=== PATIENT | female | born 1975 | race Caucasian/White ===

== ENCOUNTER 2017-05-31 08:58 | Day surgery (SDC) | payer BC ==
[~2017-05-31] VITALS: Ht 165.1 cm; Wt 52.1 kg
[~2017-05-31 08:58] MED LIST: ATIVAN0.5 MG PO; BCP TD; CLARINEX-D 24 H1 T24 PO; EXCEDRIN TENSION PO; LOVENOX 3030 MG/0.3 SQ; LOVENOX 4040 MG/0.4 SQ; MULTIPLE VITAMI1 CAP PO; PERCOCET 325 MG1 TA2 PO; PRENATAL VITAMI1 TA5 PO; PRENATAL1 TA2 PO; TYLENOL 325MG325 MG PO; VIIBRYD10 MG PO; XANAX 0.5MG0.5 MG PO
[2017-05-31] MEDS ORDERED: LOPRESSOR 225 MG/TAB PO (10:05)
[2017-05-31 10:16] VITALS: BP 123/77; PULSE 81; TEMP 98.7
[2017-05-31 11:37] VITALS: BP 128/78; PULSE 87
[2017-05-31 11:52] VITALS: BP 141/91; PULSE 73
[2017-05-31 12:07] VITALS: BP 141/84; PULSE 78
[2017-05-31 12:22] VITALS: BP 118/71; PULSE 78
[2017-05-31] MEDS ORDERED: ULTRAM 50MG TAB50 MG PO (12:29)
[2017-05-31] MEDS ORDERED: AMOXICILLIN 50500 MG PO (12:30)
[2017-05-31] MEDS ORDERED: BACITRACIN Z500 U/GM TP (12:31)
[2017-05-31] MEDS ORDERED: NORCO 325 MG-51 TAB PO (12:31)
== END 2017-05-31 13:01 | disposition home or self-care (01) ==
LOC: SDCO 08:58
DX: H61.111 Acquired deformity of pinna, right ear (principal); Z85.828 Personal history of other malignant neoplasm of skin; Z87.891 Personal history of nicotine dependence; Z88.1 Allergy status to other antibiotic agents
CPT/HCPCS: J2250; J2405; J2704; J3010; J7120

== ENCOUNTER 2017-10-04 09:00 | Outpatient (RCR) | payer BC ==
[~2017-10-04 09:00] MED LIST changes: +AMOXICILLIN 50500 MG PO; +BACITRACIN Z500 U/GM TP; +LOPRESSOR 225 MG/TAB PO; +NORCO 325 MG-51 TAB PO; +ULTRAM 50MG TAB50 MG PO
== END 2017-10-05 | disposition home or self-care (01) ==
LOC: WSOT
DX: Z47.89 Encounter for other orthopedic aftercare (principal); S63.610D Unspecified sprain of right index finger, subsequent encounter

== ENCOUNTER 2018-01-10 09:00 | Outpatient (RCR) | payer BC | END 2018-01-24 | disposition home or self-care (01) | LOC: WSOT | DX: S63.69 Other sprain of other and unspecified finger(s) (principal); S66.31 Strain of extensor muscle, fascia and tendon of other and unspecified finger at wrist and hand level ==

== ENCOUNTER → 2018-05-18 | Outpatient (CLI) | payer BC | LOC: MC.RAD 04-16 13:40 | DX: Z12.31 Encounter for screening mammogram for malignant neoplasm of breast (principal); N63.10 Unspecified lump in the right breast, unspecified quadrant ==

== ENCOUNTER 2018-05-23 09:00 | Outpatient (RCR) | payer BC | END 2018-05-28 | disposition home or self-care (01) | LOC: WSOT | DX: S63.41 Traumatic rupture of collateral ligament of finger at metacarpophalangeal and interphalangeal joint (principal) ==

== ENCOUNTER 2018-06-06 08:57 | Day surgery (SDC) | payer BC ==
[~2018-06-06] VITALS: Ht 160 cm; Wt 51.7 kg
[2018-06-06 09:14] VITALS: BP 133/84; PULSE 72; TEMP 98.1
[2018-06-06 13:23] VITALS: BP 119/83; PULSE 71; TEMP 97.6
[2018-06-06] MEDS ORDERED: NORCO 325 MG-51 TAB PO (13:37)
[2018-06-06 13:38] VITALS: BP 123/77; PULSE 70
[2018-06-06 13:45] VITALS: BP 123/73; PULSE 81
== END 2018-06-06 13:53 | disposition home or self-care (01) ==
LOC: SDCO 08:57
DX: D24.1 Benign neoplasm of right breast (principal); I10 Essential (primary) hypertension; D68.2 Hereditary deficiency of other clotting factors; F17.210 Nicotine dependence, cigarettes, uncomplicated; Z79.899 Other long term (current) drug therapy; Z86.718 Personal history of other venous thrombosis and embolism; Z80.42 Family history of malignant neoplasm of prostate
CPT/HCPCS: J0690; J1885; J2250; J2405; J2704; J3010; J7120

== ENCOUNTER 2018-06-29 09:30 | Outpatient (RCR) | payer BC | END 2018-08-30 | disposition home or self-care (01) | LOC: WSOT | DX: S63.41 Traumatic rupture of collateral ligament of finger at metacarpophalangeal and interphalangeal joint (principal) ==

== ENCOUNTER → 2018-12-03 | Outpatient (CLI) | payer BC | LOC: MC.RAD 14:14 | DX: N64.9 Disorder of breast, unspecified (principal) | CPT/HCPCS: G0279 ==

== ENCOUNTER → 2019-05-27 | Outpatient (CLI) | payer BC | LOC: MC.RAD 13:00 | DX: Z12.31 Encounter for screening mammogram for malignant neoplasm of breast (principal) ==

== ENCOUNTER 2019-12-18 16:52 | Emergency (ER) | payer OTHER ==
[~2019-12-18] VITALS: Ht 162.6 cm; Wt 54.5 kg
[2019-12-18 17:04] VITALS: BP 136/86; TEMP 98.5
[2019-12-18 18:03] VITALS: PULSE 74
== END 2019-12-18 18:03 | disposition home or self-care (01) ==
LOC: COL.ER 16:52
DX: S61.212A Laceration without foreign body of right middle finger without damage to nail, initial encounter (principal); I10 Essential (primary) hypertension; F17.210 Nicotine dependence, cigarettes, uncomplicated; Z23 Encounter for immunization; W26.0XXA Contact with knife, initial encounter; Y92.59 Other trade areas as the place of occurrence of the external cause

== ENCOUNTER → 2020-08-18 | Outpatient (CLI) | payer BC | LOC: MC.RAD 13:26 | DX: Z12.31 Encounter for screening mammogram for malignant neoplasm of breast (principal) ==

== ENCOUNTER 2021-12-16 08:13 | Day surgery (SDC) | payer BC ==
[~2021-12-16] VITALS: Ht 162.6 cm; Wt 57.5 kg
[2021-12-16 09:12] VITALS: BP 113/86; PULSE 70; TEMP 98
[2021-12-16] MEDS ORDERED: ZYRTEC 10MG10 MG PO (09:17)
[2021-12-16] MEDS ORDERED: VIIBRYD20 MG PO (09:18)
[2021-12-16 12:36] VITALS: BP 119/61; PULSE 59
--- NOTE | 2021-12-16 12:36 | NUR ---
Patient returns to room 6 per cart from surgery accompanied by Elvi BENTLEY and Sajan Kendall CRNA and is awake and alert. IV fluids infusing and site is free of redness or swelling. Sitting up and given water to drink and is eating applesauce. Denies pain and nausea. States that she wants to go home. Spouse in room and Dr. Dorman has talked with spouse and all questions answered. Dressing covering the site with scan serous drainage. Sutures noted x2 in excision line of the right groin. Temp 97.5. Room air sats 100 and temp 97.5.
--- NOTE | 2021-12-16 12:50 | NUR ---
Sitting up on the cart and dressed self. States "I want to go home." IV discontinued and site is free of redness or swelling. Given dismissal instructions and patient voices understanding of these. Provided follow up appointment date and time with office number for questions and concerns.
--- NOTE | 2021-12-16 13:04 | NUR ---
Patient dismissed to home driven by spouse per private vehicle and taken to the front door per wheelchair and assisted into vehicle with all instructions in hand.
== END 2021-12-16 13:04 | disposition home or self-care (01) ==
LOC: SDCO 08:13
DX: L02.214 Cutaneous abscess of groin (principal); L90.5 Scar conditions and fibrosis of skin; L08.89 Other specified local infections of the skin and subcutaneous tissue; F17.210 Nicotine dependence, cigarettes, uncomplicated
CPT/HCPCS: J0690; J2250; J2704; J3010; J7120

== ENCOUNTER → 2022-02-01 | Outpatient (CLI) | payer BC ==
[~2022-02-01] MED LIST changes: +VIIBRYD20 MG PO; +ZYRTEC 10MG10 MG PO
== END ==
LOC: MC.RAD 13:09
DX: Z12.31 Encounter for screening mammogram for malignant neoplasm of breast (principal)

== ENCOUNTER 2024-04-03 06:53 | Day surgery (SDC) | payer BC ==
[~2024-04-03] VITALS: Ht 162.6 cm; Wt 57.1 kg
[2024-04-03 07:59] VITALS: BP 131/87; PULSE 76; TEMP 98.1
[2024-04-03] MEDS ORDERED: LR 1,000 ML IV SCH (08:00)
[2024-04-03] MEDS ORDERED: NORCO 325 MG-51 TAB PO (08:11)
[2024-04-03] MEDS ORDERED: Ibuprofen 600 MG TAB PO PRN (08:15)
[2024-04-03] MEDS ORDERED: Acetaminophen 325 MG TAB PO PRN (08:15)
[2024-04-03] MEDS ORDERED: Ondansetron 4 MG/2 ML VIAL IV PRN ×2 (08:15→09:45)
[2024-04-03] MEDS ORDERED: Lidocaine PF 2% (20 MG/ML) 5 ML VIAL ONE (08:33)
[2024-04-03] MEDS ORDERED: NS 10 ML IV ONE (08:33)
[2024-04-03] MEDS ORDERED: Midazolam 2 MG/2 ML VIAL ONE (08:45)
[2024-04-03] MEDS ORDERED: Lidocaine PF 2% (20 MG/ML) 10 ML POLY AMP IJ ONE (09:01)
[2024-04-03 09:34] VITALS: BP 129/72; PULSE 73; TEMP 97.8
--- NOTE | 2024-04-03 09:34 | NUR ---
PATIENT RETURNS TO ROOM 7 PER CART FROM THE OPERATING ROOM ACCOMPANIED BY STEVE CONROY AND MARI BENTLEY. PATIENT AWAKE AND C/O BEING COLD. WARM BLANKETS ON. DRESSING TO MID ABDOMEN CLEAN AND DRY. IVF INFUSING. SIDERAILS UP X2 AND CALL LIGHT IN REACH. SPOUSE IN ROOM. PATIENT DENIES PAIN OR NAUSEA. GIVEN WATER TO DRINK PER REQUEST.
[2024-04-03] MEDS ORDERED: fentaNYL 50 MCG/ML 1 ML SYRINGE/VIAL [PACU/SDC ONLY] IV PRN (09:45)
[2024-04-03] MEDS ORDERED: HYDROmorphone 1 MG/1 ML SYRINGE [PACU/SDC ONLY] IV PRN (09:45)
[2024-04-03] MEDS ORDERED: Ketorolac 30 MG/ML VIAL IV PRN (09:45)
[2024-04-03 09:49] VITALS: BP 134/71; PULSE 70
--- NOTE | 2024-04-03 09:49 | NUR ---
TOLERATES WATER. RESTING AND TALKING WITH SPOUSE.
[2024-04-03 10:04] VITALS: BP 145/74; PULSE 61
--- NOTE | 2024-04-03 10:04 | NUR ---
IV DISCONTINUED AND PATIENT AMBULATES TO BATHROOM WITH STEADY GAIT. RETURNS TO ROOM AND DRESSES SELF.
--- NOTE | 2024-04-03 10:17 | NUR ---
DISCHARGE INSTRUCTIONS WERE GIVEN AND PATIENT VOICED UNDERSTANDING OF THESE. PROVIDED OFFICE NUMBER FOR ANY QUESTIONS OR CONCERNS.
--- NOTE | 2024-04-03 10:21 | NUR ---
PATIENT WAS DISCHARGED TO HOME DRIVEN BY SPOUSE PER PRIVATE VEHICLE WITH DISCHARGE INSTRUCTIONS IN HAND.
== END 2024-04-03 10:21 | disposition home or self-care (01) ==
LOC: SDCO 06:53
DX: K43.0 Incisional hernia with obstruction, without gangrene (principal); I10 Essential (primary) hypertension; F17.210 Nicotine dependence, cigarettes, uncomplicated; Z86.718 Personal history of other venous thrombosis and embolism; Z79.899 Other long term (current) drug therapy
CPT/HCPCS: J0690; J2250; J2704; J7120